=== PATIENT | female | born 1965 | race Caucasian/White ===

== ENCOUNTER → 2019-03-06 | Outpatient (CLI) | payer OTHER ==
--- NOTE | 2019-03-06 13:20 | MM ---
Reason for exam: screening (asymptomatic). Last mammogram was performed 2 years and 1 month ago. History: Family history of breast cancer in mother at age 63. Took hormonal contraceptives for 10 years. Physical Findings: A clinical breast exam by your physician is recommended on an annual basis and results should be correlated with mammographic findings. MG 3D Screening Mammo W/Cad Bilateral CC and MLO view(s) were taken. Prior study comparison: February 07, 2017, mammogram, performed at [place]. May 05, 2015, mammogram, performed at [place]. The breast tissue is heterogeneously dense. This may lower the sensitivity of mammography. There are benign appearing round calcifications in the left breast. There is no discrete abnormality. ASSESSMENT: Benign, BI-RAD 2 RECOMMENDATION: Routine screening mammogram of both breasts in 1 year.
== END | disposition home or self-care (01) ==
LOC: RADMAMWWP 08:43
PROVIDERS: ATTEND Family Medicine
DX: Z12.31 Encounter for screening mammogram for malignant neoplasm of breast (principal)
CPT/HCPCS: 77063; 77067

== ENCOUNTER 2019-06-19 08:25 | Day surgery (SDC) | payer OTHER ==
[2019-06-14 15:11] VITALS: BMI 22.4
[~2019-06-19 08:25] MED LIST: LACTATED RINGERS 1,000 ML IV SCH; LIDOCAINE 1% 20 ML VIAL (10MG/ML) FOR IV START INTRADERMA PRN
--- NOTE | 2019-06-19 08:46 | P.GSHP ---
History of Present Illness H&P Date: 06/19/19 CHIEF COMPLAINT: Colon screen HISTORY OF PRESENT ILLNESS: The patient is a 53-year-old female who presents for colon screen. Lower endoscopy was offered for further evaluation and management. PAST MEDICAL HISTORY: Please see list. PAST SURGICAL HISTORY: Please see list. MEDICATIONS: Please see list. ALLERGIES: Please see list. SOCIAL HISTORY: No illicit drug use FAMILY HISTORY: No reports of Crohn disease or ulcerative colitis. REVIEW OF ORGAN SYSTEMS: CONSTITUTIONAL: No reports of fevers or chills. PHYSICAL EXAM: VITAL SIGNS: Stable GENERAL: Well-developed pleasant in no acute distress. HEENT: No scleral icterus. Extraocular movements grossly intact. Moist buccal mucosa. NECK: Supple without lymphadenopathy. CHEST: Unlabored respirations. Equal bilateral excursions. CARDIOVASCULAR: Regular rate and rhythm. Distal 2+ pulses. ABDOMEN: Soft, nontender, nondistended. MUSCULOSKELETAL: No clubbing, cyanosis, or edema. ASSESSMENT: 1. Colon screen. PLAN: 1. Recommend proceeding with a lower endoscopy Past Medical History Past Medical History: No Reported History Additional Past Medical History / Comment(s): Hx colon polyps History of Any Multi-Drug Resistant Organisms: None Reported Past Surgical History: Back Surgery, Hysterectomy Additional Past Surgical History / Comment(s): colonoscopy,scoliosis operation 1974, Past Anesthesia/Blood Transfusion Reactions: Postoperative Nausea & Vomiting (PONV) Smoking Status: Never smoker - Past Family History Mother Family Medical History: Cancer Additional Family Medical History / Comment(s): breast cancer Father Family Medical History: Cancer Additional Family Medical History / Comment(s): lung cancer Medications and Allergies Home Medications Medication Instructions Recorded Confirmed Type Ibuprofen [Advil] 200 mg PO DAILY 06/14/19 06/14/19 History Multivitamin/Iron/Folic Acid 1 each PO DAILY 06/14/19 06/14/19 History [Centrum Adults Tablet] Sertraline [Zoloft] 25 mg PO Q48H 06/14/19 06/14/19 History Vitamin C/Biotin [Hair, Skin and 1 tab PO DAILY 06/14/19 06/14/19 History Nails] Allergies Allergy/AdvReac Type Severity Reaction Status Date / Time No Known Allergies Allergy Verified 06/14/19 15:03
[2019-06-19 08:56] VITALS: RESP 16; TEMP 98.6
[2019-06-19] MEDS ORDERED: PROPOFOL 10 MG/ML 20 ML VIAL IV ONE (09:04)
--- NOTE | 2019-06-19 09:35 | P.PCN ---
Date of Procedure: 06/19/19 Description of Procedure: PREOPERATIVE DIAGNOSIS: Colonoscopy screening Personal history of colon polyps Family history of colon cancer POSTOPERATIVE DIAGNOSIS: Colonoscopy screening Personal history of colon polyps Family history of colon cancer Ascending colon villous adenoma External hemorrhoids, grade 2 Sigmoid diverticulosis OPERATION: Colonoscopy to the ileocecal valve and appendiceal orifice. Colonoscopy with cold forceps biopsy SURGEON: Tiffany Byers MD. ANESTHESIA: MAC. INDICATIONS: The patient is a 53-year-old female who presents for colonoscopy screening. Last colonoscopy 5 years ago with family history of colon cancer. Benefits and risks were described and informed consent was obtained. DESCRIPTION OF PROCEDURE: The patient had undergone Suprep. She had been brought into the operating room and laid in the left lateral decubitus position. After adequate intravenous sed ation, the rectum was examined with 2% lidocaine jelly. External hemorrhoids were encountered. The rectal tone was within normal limits. No lesions were palpated in the rectal vault. An Olympus colonoscope was advanced until the ileocecal valve and appendiceal orifice were clearly viewed. The prep was good with visualization of the mucosal folds. Scattered diverticulosis was encountered from 20-30 cm from the anal verge. Villous 4 mm colonic polyps was cold forcep biopsy. No evidence of focal colitis was found. Retroflexion of the scope demonstrated grade 1 internal hemorrhoids without active bleeding or inflammation. The colon was desufflated. The patient had tolerated the procedure well. Withdrawal time was over 6 minutes. FINDINGS: Aronchick preparation quality scale 2 (1-5) Internal hemorrhoids, grade 1 External hemorrhoids, grade 2. No arteriovenous malformations Sigmoid diverticulosis 20-30 cm from anal verge Removal of 1 polyps: - Cold forceps biopsy proximal ascending colon, 4 mm polyp. No focal colitis. RECOMMENDATIONS: Repeat colonoscopy in 3 years, 2021 Plan - Discharge Summary Discharge Rx Participant: No New Discharge Prescriptions: No Action Sertraline [Zoloft] 25 mg PO Q48H Ibuprofen [Advil] 200 mg PO DAILY Multivitamin/Iron/Folic Acid [Centrum Adults Tablet] 1 each PO DAILY Vitamin C/Biotin [Hair, Skin and Nails] 1 tab PO DAILY Discharge Medication List Ibuprofen [Advil] 200 mg PO DAILY 06/14/19 [History] Multivitamin/Iron/Folic Acid [Centrum Adults Tablet] 1 each PO DAILY 06/14/19 [History] Sertraline [Zoloft] 25 mg PO Q48H 06/14/19 [History] Vitamin C/Biotin [Hair, Skin and Nails] 1 tab PO DAILY 06/14/19 [History] Follow up Appointment(s)/Referral(s): Tiffany Byers MD [STAFF PHYSICIAN] - As Needed Patient Instructions/Handouts: Colorectal Polyps (GEN), Diverticulosis (DC), Diverticulosis Diet (GEN) Activity/Diet/Wound Care/Special Instructions: Repeat colonoscopy 5 years, 2023 Discharge Disposition: HOME SELF-CARE
[2019-06-19 09:48] VITALS: BP 107/70; PULSE 58
== END 2019-06-19 10:09 | disposition home or self-care (01) ==
LOC: ORWHC2ENDO 08:25
PROVIDERS: ATTEND Surgery Plastic and Reconstructive Surgery
DX: Z12.11 Encounter for screening for malignant neoplasm of colon (principal); D12.2 Benign neoplasm of ascending colon; K57.30 Diverticulosis of large intestine without perforation or abscess without bleeding; K64.4 Residual hemorrhoidal skin tags; K64.0 First degree hemorrhoids; F41.9 Anxiety disorder, unspecified; Z86.010 Personal history of colon polyps; Z80.0 Family history of malignant neoplasm of digestive organs; Z90.710 Acquired absence of both cervix and uterus; Z98.890 Other specified postprocedural states; Z80.3 Family history of malignant neoplasm of breast; Z80.1 Family history of malignant neoplasm of trachea, bronchus and lung; Z79.1 Long term (current) use of non-steroidal anti-inflammatories (NSAID); Z79.899 Other long term (current) drug therapy
CPT/HCPCS: 88305; 45380; J2704

== ENCOUNTER → 2021-02-23 | Outpatient (CLI) | payer OTHER ==
--- NOTE | 2021-02-25 09:14 | MM ---
Reason for exam: screening (asymptomatic). Last mammogram was performed 2 years ago. History: Family history of breast cancer in mother at age 63. Took hormonal contraceptives for 10 years. Physical Findings: A clinical breast exam by your physician is recommended on an annual basis and results should be correlated with mammographic findings. MG 3D Screening Mammo W/Cad Bilateral CC and MLO view(s) were taken. Prior study comparison: March 06, 2019, bilateral MG 3d screening mammo w/cad. February 07, 2017, mammogram, performed at [place]. There are scattered fibroglandular densities. ASSESSMENT: Negative, BI-RAD 1 RECOMMENDATION: Routine screening mammogram of both breasts in 1 year.
== END | disposition home or self-care (01) ==
LOC: RADMAMWWP 12:51
PROVIDERS: ATTEND Family Medicine
DX: Z12.31 Encounter for screening mammogram for malignant neoplasm of breast (principal); Z80.3 Family history of malignant neoplasm of breast; Z79.3 Long term (current) use of hormonal contraceptives
CPT/HCPCS: 77063; 77067

== ENCOUNTER → 2022-02-28 | Outpatient (CLI) | payer OTHER ==
--- NOTE | 2022-03-01 11:32 | MM ---
Reason for Exam: Screening (asymptomatic). Last screening mammogram was performed 12 month(s) ago. Patient History: Menarche at age 9. First Full-Term at age 23. Hysterectomy at age 43. Patient used Hormonal Contraceptives for 10 years. Mother had breast cancer, age 63. Risk Values: Ariadna 5 year model risk: 2.9%. NCI Lifetime model risk: 15.9%. Prior Study Comparison: 02/07/2017 Screening Mammogram, [place]. 03/06/2019 Bilateral Screening Mammogram, [facility]. 02/23/2021 Bilateral Screening Mammogram, [facility]. Tissue Density: The breast tissue is heterogeneously dense. This may lower the sensitivity of mammography. Findings: Analyzed By CAD. There is no suspicious group of microcalcifications or new suspicious mass in either breast. Benign calcifications. Overall Assessment: Benign, BI-RAD 2 Management: Screening Mammogram of both breasts in 1 year. A clinical breast exam by your physician is recommended on an annual basis and results should be correlated with mammographic findings. Electronically signed and approved by: Vidal Anguiano M.D. Radiologis
== END | disposition home or self-care (01) ==
LOC: RADMAMWWP 08:24
PROVIDERS: ATTEND Family Medicine
DX: Z12.31 Encounter for screening mammogram for malignant neoplasm of breast (principal); Z80.3 Family history of malignant neoplasm of breast
CPT/HCPCS: 77063; 77067

== ENCOUNTER 2022-12-07 07:51 | Day surgery (SDC) | payer OTHER ==
[2022-10-20 11:44] VITALS: BMI 22.4
--- NOTE | 2022-12-07 07:38 | P.GSHP ---
History of Present Illness H&P Date: 12/07/22 CHIEF COMPLAINT: Colon screen HISTORY OF PRESENT ILLNESS: The patient is a 57-year-old female who presents for colon screen. Lower endoscopy was offered for further evaluation and management. PAST MEDICAL HISTORY: Please see list. PAST SURGICAL HISTORY: Please see list. MEDICATIONS: Please see list. ALLERGIES: Please see list. SOCIAL HISTORY: No illicit drug use FAMILY HISTORY: No reports of Crohn disease or ulcerative colitis. REVIEW OF ORGAN SYSTEMS: CONSTITUTIONAL: No reports of fevers or chills. PHYSICAL EXAM: VITAL SIGNS: Stable GENERAL: Well-developed pleasant in no acute distress. HEENT: No scleral icterus. Extraocular movements grossly intact. Moist buccal mucosa. NECK: Supple without lymphadenopathy. CHEST: Unlabored respirations. Equal bilateral excursions. CARDIOVASCULAR: Regular rate and rhythm. Distal 2+ pulses. ABDOMEN: Soft, nontender, nondistended. MUSCULOSKELETAL: No clubbing, cyanosis, or edema. ASSESSMENT: 1. Colon screen. PLAN: 1. Recommend proceeding with a lower endoscopy Past Medical History Past Medical History: No Reported History Additional Past Medical History / Comment(s): FELL DOWN BASEMENT STAIRS 10/13/22- HAS SOME BUMPS AND BRUISES. History of Any Multi-Drug Resistant Organisms: None Reported Past Surgical History: Back Surgery, Hysterectomy Additional Past Surgical History / Comment(s): COLONOSCOPY Past Anesthesia/Blood Transfusion Reactions: No Reported Reaction Past Psychological History: No Psychological Hx Reported Smoking Status: Never smoker Past Alcohol Use History: Occasional Past Drug Use History: None Reported - Past Family History Father Family Medical History: Cancer Mother Family Medical History: Cancer Medications and Allergies Home Medications Medication Instructions Recorded Confirmed Type No Known Home Medications 12/02/22 12/02/22 History Allergies Allergy/AdvReac Type Severity Reaction Status Date / Time No Known Allergies Allergy Verified 12/02/22 11:52
[~2022-12-07 07:51] MED LIST changes: +LIDOCAINE 1% (10MG/ML) FOR IV START INTRADERMA PRN; -LIDOCAINE 1% 20 ML VIAL (10MG/ML) FOR IV START INTRADERMA PRN; +ONDANSETRON 4 MG/2 ML VIAL IVP PRN
[2022-12-07 08:28] VITALS: TEMP 98.5
[2022-12-07] MEDS ORDERED: PROPOFOL 10 MG/ML 20 ML VIAL IV ONE (08:31)
--- NOTE | 2022-12-07 09:08 | P.PCN ---
Date of Procedure: 12/07/22 Description of Procedure: PREOPERATIVE DIAGNOSIS: Personal history of colon polyps Colonoscopy screening POSTOPERATIVE DIAGNOSIS: Tubular adenoma sigmoid colon Sigmoid diverticulosis, moderate to severe Internal/external hemorrhoids, grade 3 OPERATION: Colonoscopy to the ileocecal valve and appendiceal orifice, cecum Colonoscopy with cold forceps biopsy SURGEON: Tiffany Byers MD. ANESTHESIA: MAC. INDICATIONS: The patient is an 57-year-old female who presents personal history of colon polyps. Last colonoscopy within 5 years. Benefits and risks were described and informed consent was obtained. DESCRIPTION OF PROCEDURE: The patient had undergone Suprep. The patient had been brought into the operating room and laid in the left lateral decubitus position. After adequate intravenous sedation, the rectum was examined with 2% lidocaine jelly. External hemorrhoids were encountered. The rectal tone was within normal limits. No lesions were palpated in the rectal vault. An Olympus colonoscope was advanced until the cecum, ileocecal valve and appendiceal orifice were clearly viewed. The prep was excellent. Sigmoid diverticulosis moderate to severe. Highly redundant sigmoid colon requiring abdominal wall pressure. Colonic polyps were found and removed. No evidence of focal colitis was found. Retroflexion of the scope demonstrated grade 3 internal hemorrhoids without active bleeding or inflammation. The colon was desufflated. The patient had tolerated the procedure well. Withdrawal time was over 6 minutes. FINDINGS: Aronchick preparation quality scale 1 (1-5) Internal hemorrhoids, grade 3 External hemorrhoids, grade 3. No arteriovenous malformations. Sigmoid diverticulosis, moderate to severe Highly redundant sigmoid colon Removal of 2 polyps: - Cold forceps biopsy at ascending colon x 2, 4 - 5 mm polyp. No focal colitis. RECOMMENDATIONS: Repeat colonoscopy in 3 years2025 Plan - Discharge Summary Discharge Rx Participant: No New Discharge Prescriptions: No Action No Known Home Medications Discharge Medication List No Known Home Medications 12/02/22 [History] Follow up Appointment(s)/Referral(s): Tiffany Byers MD [STAFF PHYSICIAN] - As Needed Patient Instructions/Handouts: Diverticulosis Diet (GEN), Diverticulosis (DC), Colorectal Polyps (GEN) Activity/Diet/Wound Care/Special Instructions: Repeat colonoscopy in 3 years, 2025 Discharge Disposition: HOME SELF-CARE
[2022-12-07 09:14] VITALS: BP 121/77; PULSE 78; RESP 20
== END 2022-12-07 09:40 | disposition home or self-care (01) ==
LOC: ORWHC2ENDO 07:51
PROVIDERS: ATTEND Surgery Plastic and Reconstructive Surgery
DX: Z12.11 Encounter for screening for malignant neoplasm of colon (principal); D12.5 Benign neoplasm of sigmoid colon; K57.30 Diverticulosis of large intestine without perforation or abscess without bleeding; K64.4 Residual hemorrhoidal skin tags; K64.2 Third degree hemorrhoids
CPT/HCPCS: 88305; 45380; J2704

== ENCOUNTER → 2023-03-27 | Outpatient (CLI) | payer OTHER ==
--- NOTE | 2023-03-27 10:27 | MM ---
Reason for Exam: Screening (asymptomatic). Last mammogram was performed 1 year(s) and 1 month(s) ago. Patient History: Menarche at age 9. First Full-Term at age 23. Hysterectomy at age 43. Patient has history of breast feeding. Patient used Hormonal Contraceptives for 10 years. Mother had breast cancer, age 63. Risk Values: Ariadna 5 year model risk: 3.0%. NCI Lifetime model risk: 15.5%. Prior Study Comparison: 03/06/2019 Bilateral Screening Mammogram, [facility]. 02/23/2021 Bilateral Screening Mammogram, [facility]. 02/28/2022 Bilateral MG 3D screening mammo w/cad, [facility]. Tissue Density: There are scattered fibroglandular densities. Findings: Analyzed By CAD. There is no suspicious group of microcalcifications or new suspicious mass in either breast. Overall Assessment: Negative, BI-RAD 1 Management: Screening Mammogram of both breasts in [address] [facility] will attempt to contact patient to return for supplemental views and ultrasound if indicated. Patient should continue monthly self-breast exams. A clinical breast exam by your physician is recommended on an annual basis. This exam should not preclude additional follow-up of suspicious palpable abnormalities. Note on Ariadna scores and lifetime risk: 1. A Ariadna score greater than 3% is considered moderate risk. If this is the case, consider specialist referral to assess eligibility for a risk reducing agent. 2. If overall lifetime risk for the development of breast cancer is 20% or higher, the patient may qualify for future screening with alternating mammogram and breast MRI. Electronically signed and approved by: Eugene Ronquillo DO
== END | disposition home or self-care (01) ==
LOC: RADMAMWWP 09:06
PROVIDERS: ATTEND Family Medicine
DX: Z12.31 Encounter for screening mammogram for malignant neoplasm of breast (principal); Z80.3 Family history of malignant neoplasm of breast
CPT/HCPCS: 77063; 77067

== ENCOUNTER → 2024-04-18 | Outpatient (CLI) | payer OTHER ==
--- NOTE | 2024-04-21 11:24 | MM ---
Reason for Exam: Screening (asymptomatic). Last mammogram was performed 1 year(s) and 1 month(s) ago. Patient History: Menarche at age 9. First Full-Term at age 23. Hysterectomy at age 43. Patient has history of breast feeding. Patient used Hormonal Contraceptives for 10 years. Mother had breast cancer, age 63. Risk Values: Ariadna 5 year model risk: 3.1%. NCI Lifetime model risk: 15.2%. Prior Study Comparison: 02/23/2021 Bilateral Screening Mammogram, [facility]. 02/28/2022 Bilateral MG 3D screening mammo w/cad, [facility]. 03/27/2023 Bilateral MG 3D screening mammo w/cad, [facility]. Tissue Density: There are scattered areas of fibroglandular density. Findings: Analyzed By CAD. Right breast: There is no suspicious group of microcalcifications or new suspicious mass. Left breast: There is no suspicious group of microcalcifications or new suspicious mass. Overall Assessment: Negative, BI-RAD 1 Management: Screening Mammogram of both breasts in [address] [facility] will attempt to contact patient to return for supplemental views and ultrasound if indicated. Patient should continue monthly self-breast exams. A clinical breast exam by your physician is recommended on an annual basis. This exam should not preclude additional follow-up of suspicious palpable abnormalities. Note on Ariadna scores and lifetime risk: 1. A Ariadna score greater than 3% is considered moderate risk. If this is the case, consider specialist referral to assess eligibility for a risk reducing agent. 2. If overall lifetime risk for the development of breast cancer is 20% or higher, the patient may qualify for future screening with alternating mammogram and breast MRI. Electronically signed and approved by: Eugene Ronquillo DO
== END | disposition home or self-care (01) ==
LOC: RADMAMWWP 12:49
PROVIDERS: ATTEND Family Medicine
DX: Z12.31 Encounter for screening mammogram for malignant neoplasm of breast
CPT/HCPCS: 77063; 77067

== ENCOUNTER 2024-04-26 09:14 | Emergency (ER) | payer OTHER ==
--- NOTE | 2024-04-26 09:56 | ED ---
Abdominal Pain HPI - General Chief Complaint: Abdominal Pain Stated Complaint: abd pain Time Seen by Provider: 04/26/24 09:25 Source: patient, family, RN notes reviewed Mode of arrival: ambulatory Limitations: no limitations - History of Present Illness Initial Comments: 58-year-old female presents emergency department complaint of abdominal pain. Patient states that she has pain has started in her lower back and left side but has now moved around in her pelvic region diffuse across her abdomen. She states that she is noted fever, chills and night sweats. Patient initially started with some urinary frequency until PCP with a negative urinalysis. She has had no prior abdominal surgeries. Denies any chest pain or shortness of breath no flank pain currently. Nothing makes the pain feel better or worse. - Related Data Home Medications Medication Instructions Recorded Confirmed Phenazopyridine [Pyridium] 100 mg PO TID PRN 04/26/24 04/26/24 Sertraline [Zoloft] 25 mg PO DAILY 04/26/24 04/26/24 Previous Rx's Medication Instructions Recorded Amoxic-Pot Clav 875-125Mg 1 tab PO Q12HR #20 tab 04/26/24 [Augmentin 875-125] Allergies Allergy/AdvReac Type Severity Reaction Status Date / Time No Known Allergies Allergy Verified 04/26/24 10:56 Review of Systems ROS Statement: Those systems with pertinent positive or pertinent negative responses have been documented in the HPI. ROS Other: All systems not noted in ROS Statement are negative. Past Medical History Past Medical History: No Reported History Additional Past Medical History / Comment(s): FELL DOWN BASEMENT STAIRS 10/13/22- HAS SOME BUMPS AND BRUISES. History of Any Multi-Drug Resistant Organisms: None Reported Past Surgical History: Back Surgery, Hysterectomy, Orthopedic Surgery Additional Past Surgical History / Comment(s): COLONOSCOPY Past Anesthesia/Blood Transfusion Reactions: No Reported Reaction Past Psychological History: Anxiety Smoking Status: Never smoker Past Alcohol Use History: Occasional Past Drug Use History: None Reported - Past Family History Mother Family Medical History: Cancer Father Family Medical History: Cancer General Exam Limitations: no limitations General appearance: alert, in no apparent distress Head exam: Present: atraumatic, normocephalic, normal inspection Eye exam: Present: normal appearance, PERRL, EOMI. Absent: scleral icterus, conjunctival injection, periorbital swelling Neck exam: Present: normal inspection. Absent: tenderness, meningismus, lymphadenopathy Respiratory exam: Present: normal lung sounds bilaterally. Absent: respiratory distress, wheezes, rales, rhonchi, stridor Cardiovascular Exam: Present: regular rate, normal rhythm, normal heart sounds. Absent: systolic murmur, diastolic murmur, rubs, gallop, clicks GI/Abdominal exam: Present: soft, tenderness, normal bowel sounds. Absent: distended, guarding, rebound, rigid Back exam: Absent: CVA tenderness (R), CVA tenderness (L) Neurological exam: Present: alert Skin exam: Present: warm, dry, intact, normal color. Absent: rash Course Vital Signs 04/26/24 04/26/24 09:29 12:26 Temperature 100.0 F H 99.2 F Pulse Rate 91 67 Respiratory 16 14 Rate Blood Pressure 117/83 115/73 O2 Sat by Pulse 98 98 Oximetry Medical Decision Making - Medical Decision Making Was pt. sent in by a medical professional or institution (, PA, HEALTH EDUCATION DIRECTOR, urgent care, hospital, or residential...) When possible be specific @ -No Did you speak to anyone other than the patient for history (EMS, parent, family, police, friend...)? What history was obtained from this source @ -No Did you review nursing and triage notes (agree or disagree)? Why? @ -I reviewed and agree with nursing and triage notes Were old charts reviewed (outside hosp., previous admission, EMS record, old EKG, old radiological studies, urgent care reports/EKG's, residential records)? Report findings @ -No old charts were reviewed Differential Diagnosis (chest pain, altered mental status, abdominal pain women, abdominal pain men, vaginal bleeding, weakness, fever, dyspnea, syncope, headache, dizziness, GI bleed, back pain, seizure, CVA, palpatations, mental health, musculoskeletal)? @ -Differential Abdominal Pain Women: Appendicitis, Cholecystitis, diverticulosis, ischemic bowel, pancreatitis, hepatitis, UTI, gastroenteritis, AAA, incarcerated hernia, bowel obstruction, constipation, inflammatory bowel, hepatitis, peptic ulcer disease, splenic infarction, perforated viscus, vulvitis, ovarian torsion, PID, kidney stone, placenta abruption, this is not meant to be an all-inclusive list EKG interpreted by me (3pts min.). @ -None X-rays interpreted by me (1pt min.). @ -None done CT interpreted by me (1pt min.). @ -CT abdomen pelvis showing evidence of acute diverticulitis U/S interpreted by me (1pt. min.). @ -None done What testing was considered but not performed or refused? (CT, X-rays, U/S, labs)? Why? @ -None What meds were considered but not given or refused? Why? @ -None Did you discuss the management of the patient with other professionals (professionals i.e. DrKael, PA, HEALTH EDUCATION DIRECTOR, lab, RT, psych nurse, manager social media, scales inspector, teacher, agricultural loan officer, case fitter)? Give summary @ -No Was smoking cessation discussed for >3mins.? @ -No Was critical care preformed (if so, how long)? @ -No Were there social determinants of health that impacted care today? How? (Homelessness, low income, unemployed, alcoholism, drug addiction, transportation, low edu. Level, literacy, decrease access to med. care, long-term, rehab)? @ -No Was there de-escalation of care discussed even if they declined (Discuss DNR or withdrawal of care, Hospice)? DNR status @ -No What co-morbidities impacted this encounter? (DM, HTN, Smoking, COPD, CAD, Cancer, CVA, ARF, Chemo, Hep., AIDS, mental health diagnosis, sleep apnea, morbid obesity)? @ -None Was patient admitted / discharged? Hospital course, mention meds given and route, prescriptions, significant lab abnormalities, going to OR and other pertinent info. @ -Discharged patient found to have acute diverticulitis with no other acute findings. Patient feels comfortable discharge with oral antibiotics, clear liquid diet and return parameters rachel. Undiagnosed new problem with uncertain prognosis? @ -No Drug Therapy requiring intensive monitoring for toxicity (Heparin, Nitro, Insulin, Cardizem)? @ -No Were any procedures done? @ -No Diagnosis/symptom? @ -[Diverticulitis Acute, or Chronic, or Acute on Chronic? @ -Acute Uncomplicated (without systemic symptoms) or Complicated (systemic symptoms)? @ -Uncomplicated Side effects of treatment? @ -No Exacerbation, Progression, or Severe Exacerbation? @ -No Poses a threat to life or bodily function? How? (Chest pain, [place], [place], pneumonia, PE, COPD, DKA, ARF, appy, cholecystitis, CVA, Diverticulitis, Homicidal, Suicidal, threat to staff... and all critical care pts) @ -No - Lab Data Result diagrams: 04/26/24 10:17 04/26/24 10:17 Lab Results 04/26/24 04/26/24 04/26/24 Range/Units 10:17 10:17 10:17 WBC 11.0 H (3.8-10.6) k/uL RBC 3.86 (3.80-5.40) m/uL Hgb 12.5 (11.4-16.0) gm/dL Hct 38.6 (34.0-46.0) % MCV 99.8 (80.0-100.0) fL MCH 32.4 (25.0-35.0) pg MCHC 32.4 (31.0-37.0) g/dL RDW 12.3 (11.5-15.5) % Plt Count 342 (150-450) k/uL MPV 7.4 Neutrophils % 81 % Lymphocytes % 10 % Monocytes % 6 % Eosinophils % 1 % Basophils % 0 % Neutrophils # 8.9 H (1.3-7.7) k/uL Lymphocytes # 1.1 (1.0-4.8) k/uL Monocytes # 0.7 (0-1.0) k/uL Eosinophils # 0.2 (0-0.7) k/uL Basophils # 0.0 (0-0.2) k/uL PT 10.4 (10.0-12.5) sec INR 0.9 (<1.2) APTT 25.0 (22.0-30.0) sec Sodium (137-145) mmol/L Potassium (3.5-5.1) mmol/L Chloride (98-107) mmol/L Carbon Dioxide (22-30) mmol/L Anion Gap mmol/L BUN (7-17) mg/dL Creatinine (0.52-1.04) mg/dL Est GFR (CKD-EPI)AfAm (>60 ml/min/1.73 sqM) Est GFR (CKD-EPI)NonAf (>60 ml/min/1.73 sqM) Glucose (74-99) mg/dL Plasma Lactic Acid Derrick (0.7-2.0) mmol/L Calcium (8.4-10.2) mg/dL Total Bilirubin (0.2-1.3) mg/dL AST (14-36) U/L ALT (4-34) U/L Alkaline Phosphatase (38-126) U/L Total Protein (6.3-8.2) g/dL Albumin (3.5-5.0) g/dL Lipase (23-300) U/L Urine Color Yellow Urine Appearance Clear (Clear) Urine pH 5.5 (5.0-8.0) Ur Specific [place] 1.020 (1.001-1.035) Urine Protein Trace H (Negative) Urine Glucose (UA) Negative (Negative) Urine Ketones 1+ H (Negative) Urine Blood Moderate H (Negative) Urine Nitrite Negative (Negative) Urine Bilirubin Negative (Negative) Urine Urobilinogen <2.0 (<2.0) mg/dL Ur Leukocyte Esterase Negative (Negative) Urine RBC 14 H (0-5) /hpf Urine WBC 1 (0-5) /hpf Ur Squamous Epith Cells <1 (0-4) /hpf Urine Mucus Moderate H (None) /hpf 04/26/24 04/26/24 Range/Units 10:17 10:17 WBC (3.8-10.6) k/uL RBC (3.80-5.40) m/uL Hgb (11.4-16.0) gm/dL Hct (34.0-46.0) % MCV (80.0-100.0) fL MCH (25.0-35.0) pg MCHC (31.0-37.0) g/dL RDW (11.5-15.5) % Plt Count (150-450) k/uL MPV Neutrophils % % Lymphocytes % % Monocytes % % Eosinophils % % Basophils % % Neutrophils # (1.3-7.7) k/uL Lymphocytes # (1.0-4.8) k/uL Monocytes # (0-1.0) k/uL Eosinophils # (0-0.7) k/uL Basophils # (0-0.2) k/uL PT (10.0-12.5) sec INR (<1.2) APTT (22.0-30.0) sec Sodium 137 (137-145) mmol/L Potassium 3.8 (3.5-5.1) mmol/L Chloride 90 L (98-107) mmol/L Carbon Dioxide 26 (22-30) mmol/L Anion Gap 21 mmol/L BUN 9 (7-17) mg/dL Creatinine 0.63 (0.52-1.04) mg/dL Est GFR (CKD-EPI)AfAm >90 (>60 ml/min/1.73 sqM) Est GFR (CKD-EPI)NonAf >90 (>60 ml/min/1.73 sqM) Glucose 94 (74-99) mg/dL Plasma Lactic Acid Derrick 0.8 (0.7-2.0) mmol/L Calcium 8.9 (8.4-10.2) mg/dL Total Bilirubin 0.6 (0.2-1.3) mg/dL AST 30 (14-36) U/L ALT 26 (4-34) U/L Alkaline Phosphatase 115 (38-126) U/L Total Protein 6.5 (6.3-8.2) g/dL Albumin 3.8 (3.5-5.0) g/dL Lipase 65 (23-300) U/L Urine Color Urine Appearance (Clear) Urine pH (5.0-8.0) Ur Specific [place] (1.001-1.035) Urine Protein (Negative) Urine Glucose (UA) (Negative) Urine Ketones (Negative) Urine Blood (Negative) Urine Nitrite (Negative) Urine Bilirubin (Negative) Urine Urobilinogen (<2.0) mg/dL Ur Leukocyte Esterase (Negative) Urine RBC (0-5) /hpf Urine WBC (0-5) /hpf Ur Squamous Epith Cells (0-4) /hpf Urine Mucus (None) /hpf Disposition Clinical Impression: Diverticulitis Disposition: HOME SELF-CARE Condition: Stable Instructions (If sedation given, give patient instructions): Diverticulitis (ED), Diverticulitis Diet (ED) Additional Instructions: Please return to the Emergency Department if symptoms worsen or any other concerns. Prescriptions: Amoxic-Pot Clav 875-125Mg [Augmentin 875-125] 1 tab PO Q12HR #20 tab Is patient prescribed a controlled substance at d/c from ED?: No Referrals: Reynaldo Ochoa DO [Primary Care Provider] - 1-2 days Time of Disposition: 12:07
[2024-04-26] MEDS: ONDANSETRON 4 MG/2 ML VIAL IVP STA (10:30)
[2024-04-26] MEDS: KETOROLAC 15 MG/ML 1 ML VIAL IVP STA (10:32)
[2024-04-26 10:33] LABS: Basophils % (A) 0 %; Eosinophils # (A) 0.2 k/uL (0-0.7); Eosinophils % (A) 1 %; HCT 38.6 % (34.0-46.0); HGB 12.5 gm/dL (11.4-16.0); Lymphocytes # (A) 1.1 k/uL (1.0-4.8); Lymphocytes % (A) 10 %; MCH 32.4 pg (25.0-35.0); MCHC 32.4 g/dL (31.0-37.0); MCV 99.8 fL (80.0-100.0); Mean Platelet Volume 7.4; Monocytes # (A) 0.7 k/uL (0-1.0); Monocytes % (A) 6 %; Neutrophils # (A) 8.9 k/uL (1.3-7.7); Neutrophils % (A) 81 %; Platelet Count 342 k/uL (150-450); RBC 3.86 m/uL (3.80-5.40); RDW 12.3 % (11.5-15.5)
[2024-04-26] MEDS: SODIUM CHLORIDE 0.9% 1,000 ML IV STA (10:35)
[2024-04-26 10:41] LABS: Appearance,Urine Clear (Clear); Bilirubin,Urine Negative (Negative); Blood,Urine Moderate (Negative); Color,Urine Yellow; Glucose,Urine (UA) Negative (Negative); INR 0.9 (<1.2); Ketones,Urine 1+ (Negative); Leukocyte Esterase,Urine Negative (Negative); Mucus,Urine Moderate /hpf; Nitrite,Urine Negative (Negative); PH, Urine 5.5 (5.0-8.0); Protein,Urine Trace (Negative); Prothrombin Time 10.4 sec (10.0-12.5); RBC,Urine 14 /hpf (0-5); Squamous Epithelial Cell,Urine <1 /hpf (0-4); Urobilinogen,Urine <2.0 mg/dL (<2.0); WBC,Urine 1 /hpf (0-5)
[2024-04-26 10:56] LABS: ALT 26 U/L (4-34); AST 30 U/L (14-36); African American GFR (CKD) >90 (>60 ml/min/1.73 sqM); Albumin 3.8 g/dL (3.5-5.0); Alkaline Phosphatase 115 U/L (38-126); Anion Gap 21 mmol/L; Blood Urea Nitrogen 9 mg/dL (7-17); Calcium 8.9 mg/dL (8.4-10.2); Carbon Dioxide 26 mmol/L (22-30); Chloride 90 mmol/L (98-107); Glucose 94 mg/dL (74-99); Lipase 65 U/L (23-300); Non-African American GFR(CKD) >90 (>60 ml/min/1.73 sqM); Potassium 3.8 mmol/L (3.5-5.1); Sodium 137 mmol/L (137-145); Total Bilirubin 0.6 mg/dL (0.2-1.3); Total Protein 6.5 g/dL (6.3-8.2)
--- NOTE | 2024-04-26 11:30 | CT ---
EXAMINATION TYPE: CT abdomen pelvis w con CT DLP: 641.9 mGycm, Automated exposure control for dose reduction was used. DATE OF EXAM: 04/26/2024 11:06 AM COMPARISON: None CLINICAL INDICATION: Female, 58 years old with history of abdominal pain/fever; abdominal pain/fever TECHNIQUE: Axial CT abdomen pelvis w con;Sagittal and coronal reformats were created on a separate w orkstation. Contrast used:100 mL of Isovue 300 with IV Contrast, (none if empty) Oral contrast used: without Oral Contrast (none if empty) FINDINGS: LOWER CHEST: Unremarkable ABDOMEN LIVER: Unremarkable GALLBLADDER AND BILE DUCTS: Unremarkable. PANCREAS: Unremarkable. SPLEEN: Unremarkable. ADRENAL GLANDS: Unremarkable. KIDNEYS AND URETERS: No evidence of hydronephrosis or renal calculus. The ureters are unremarkable. PELVIS BLADDER: Unremarkable REPRODUCTIVE: The uterus is surgically absent. ABDOMEN & PELVIS STOMACH AND BOWEL: No evidence of bowel obstruction. Wall thickening of the sigmoid colon with multip le colonic diverticula in this mesorectal engorgement. No evidence for perforation or organizing flui d collection. The appendix is normal. PERITONEUM/RETROPERITONEUM: No evidence of pneumoperitoneum or free fluid. VASCULATURE: No evidence of aortic aneurysm. MUSCULOSKELETAL: No acute osseous abnormalities fixation changes to the spine partially visualized. M ild degeneration changes throughout the visualized spine. LYMPH NODES: No gross evidence for lymphadenopathy. SOFT TISSUE/ABDOMINAL WALL: Unremarkable IMPRESSION: Class/diverticulitis of the sigmoid colon. No evidence for organizing fluid collection or perforation .
[2024-04-26] MEDS ORDERED: cefTRIAXone IN SWFI 1,000 MG/10 ML SYRINGE IVP STA (12:06)
[2024-04-26 12:37] VITALS: BP 115/73; PULSE 67; RESP 14; TEMP 99.2
== END 2024-04-26 12:37 | disposition home or self-care (01) ==
LOC: EC 09:14
DX: K57.32 Diverticulitis of large intestine without perforation or abscess without bleeding (principal)
CPT/HCPCS: 36415; 74177; 80053; 81001; 83605; 83690; 85025; 85610; 85730; 96361; 96374; 96375; 99284